=== PATIENT | male | born 1965 | race African-American/Black ===

== ENCOUNTER 2016-12-13 10:32 | Inpatient (IN) | payer OTHER ==
[2016-12-13 12:07] VITALS: BMI 24.1
--- NOTE | 2016-12-13 12:19 | HP ---
Admission ROS [facility] Chief Complaint: I gave a dirty tox and since I am on probation I need to be here for rehab services then go back to work. Allergies/Adverse Reactions: Allergies Allergy/AdvReac Type Severity Reaction Status Date / Time No Known Allergies Allergy Verified 12/13/16 12:09 History of Present Illness: pt is a 51yr old male with a history of crack/cocaine dependence seeking detox for treatment. Pt has a history of alcohol dependence but last drink was three days ago and currently has no withdrawals s/s.This is his first time in our facility for any services. Last time in any detox facility was many years ago at [facility]. Exam Limitations: No Limitations (I) - Ebola screening Have you traveled outside of the country in the last 21 days: No Have you had contact with anyone from an Ebola affected area: No Have you been sick,other than usual withdrawal symptoms: No Do you have a fever: No - Review of Systems Constitutional: No Symptoms Reported EENT: reports: No Symptoms Reported Respiratory: reports: No Symptoms reported Cardiac: reports: No Symptoms Reported GI: reports: No Symptoms Reported : reports: Frequency Musculoskeletal: reports: No Symptoms Reported Integumentary: reports: No Symptoms Reported Neuro: reports: No Symptoms reported Endocrine: reports: No Symptoms Reported Hematology: reports: No Symptoms Reported Psychiatric: reports: No Sypmtoms Reported, Judgement Intact, Orientated x3 Other Systems: Reviewed and Negative Patient History - Patient Medical History Hx Anemia: No Hx Asthma: No Hx Chronic Obstructive Pulmonary Disease (COPD): No Hx Cancer: No Hx Hypertension: Yes Hx Hypercholesterolemia: Yes Hx Pacemaker: No HX Cerebrovascular Accident: No Hx Seizures: No Hx Dementia: No Hx Diabetes: No Hx Gastrointestinal Disorders: No Hx Liver Disease: No Hx Genitourinary Disorders: No Hx Sexually Transmitted Disorders: No Hx Renal Disease (ESRD): No Hx Thyroid Disease: No Hx Human Immunodeficiency Virus (HIV): No (negative) Hx Hepatitis C: No (negative) Hx Depression: No Hx Suicide Attempt: No (denies) Hx Bipolar Disorder: No Hx Schizophrenia: No - Patient Surgical History Past Surgical History: No - PPD History Previous Implant?: Yes Documented Results: Positive w/o proof PPD to be Administered?: No - Reproductive History Patient is a Female of Child Bearing Age (11 -55 yrs old): No - Smoking Cessation Smoking history: Current every day smoker Have you smoked in the past 12 months: Yes Aproximately how many cigarettes per day: 10 Hx Chewing Tobacco Use: No Initiated information on smoking cessation: Yes 'Breaking Loose' booklet given: 12/13/16 - Substance & Tx. History Hx Alcohol Use: Yes Hx Substance Use: Yes Substance Use Type: Alcohol, Cocaine - Substances Abused Alcohol-beer Route: Oral Frequency: 1-2 times per week Amount used: 2-3 (12 oz.) Age of first use: 20 Date of Last Use: 12/10/16 Crack Route: Smoking Frequency: 3-6 times per week Amount used: $60 Age of first use: 24 Date of Last Use: 12/11/16 Family Disease History - Family Disease History Family History: Denies Admission Physical Exam [facility] - Vital Signs Vital Signs: Vital Signs - 24 hr 12/13/16 11:58 Temperature 97.5 F L Pulse Rate 83 Respiratory 18 Rate Blood Pressure 133/77 - Physical General Appearance: Yes: Appropriately Dressed, Mild Distress, Thin HEENTM: Yes: Normal Voice Respiratory: Yes: Lungs Clear, Normal Breath Sounds, No Respiratory Distress Neck: Yes: No masses,lesions,Nodules Breast: Yes: Within Normal Limits Cardiology: Yes: Regular Rhythm, Regular Rate, S1, S2 Abdominal: Yes: Normal Bowel Sounds, Non Tender, Soft Genitourinary: Yes: Within Normal Limits Back: Yes: Normal Inspection Musculoskeletal: Yes: full range of Motion Extremities: Yes: Normal Capillary Refill, Normal Inspection, Tremors Neurological: Yes: Fully Oriented, Alert, Normal Response Integumentary: Yes: Normal Color Lymphatic: Yes: Within Normal Limits - Diagnostic (1) Crack cocaine use Current Visit: Yes Status: Chronic (2) Nicotine dependence Current Visit: Yes Status: Chronic Qualifiers: Nicotine product type: cigarettes Substance use status: uncomplicated Qualified Code(s): F17.210 - Nicotine dependence, cigarettes, uncomplicated (3) Positive PPD Current Visit: Yes Status: Resolved Comment: received tx many years ago. (4) Alcohol abuse Current Visit: No Status: Chronic Cleared for Admission [facility] - Detox or Rehab [facility] Level of Care: Medically Managed Claeared for Rehab Admission: Yes [facility] Breath Alcohol Content Breath Alcohol Content: 0 Urine Drug Screen - Results Drug Screen Negative: No Urine Drug Screen Results: EUN-Cocaine
[2016-12-13] MEDS ORDERED: MAGNESIUM HYDROX 2400MG/30ML ORAL SUSPENSION 30 ML CUP PO PRN (12:37)
[2016-12-13] MEDS ORDERED: LOPERAMIDE HCL 2 MG CAPSULE PO PRN (12:37)
[2016-12-13] MEDS ORDERED: hydrOXYzine PAMOATE 50 MG CAPSULE (FP) PO PRN (12:37)
[2016-12-13] MEDS ORDERED: guaiFENesin/D-METHORPHAN HB 10 ML UNIT-DOSE CUPS PO PRN (12:37)
[2016-12-13] MEDS ORDERED: MAG HYDROX/AL HYDROX/SIMETH 30 ML UNIT-DOSE CUP PO PRN (12:37)
[2016-12-13] MEDS ORDERED: IBUPROFEN 400 MG TABLET (FP) PO PRN (12:37)
[2016-12-13] MEDS ORDERED: ACETAMINOPHEN 325 MG TABLET (FP) PO PRN (12:37)
[2016-12-13] MEDS ORDERED: MENTHOL/PHENOL 1 EACH UD MM PRN (12:37)
[2016-12-13] MEDS ORDERED: MAGNESIUM CITRATE 300 ML BOTTLE PO PRN (12:37)
[2016-12-13] MEDS ORDERED: P-EPHED 60MG/TRIPROLIDI 2.5MG TABLET PO PRN (12:37)
[2016-12-13 14:45] LABS: MCH 31.2 pg (25.7-33.7); MCHC 33.1 g/dl (32.0-35.9); MEAN CELL VOLUME 94.5 fl (80-96); MEAN PLT VOLUME 8.3 fl (7.5-11.1); PLATELET COUNT 232 K/MM3 (134-434); RDW 14.2 % (11.9-15.9); WHITE BLOOD COUNT 7.9 K/mm3 (4.0-10.0)
[2016-12-13 15:17] LABS: ALBUMIN 3.5 g/dl (3.4-5.0); ALK PHOS 73 U/L (45-117); ANION GAP 7 (8-16); BILIRUBIN,TOTAL 0.2 mg/dL (0.2-1.0); CALCIUM 8.8 mg/dL (8.5-10.1); CO2 29 mmol/L (21-32); CREATININE 1.2 mg/dL (0.7-1.3); GLUCOSE,RANDOM 112 mg/dL (74-106); SGOT/AST 20 U/L (15-37); SGPT/ALT 23 U/L (12-78); TOT PROT 6.7 g/dl (6.4-8.2)
[2016-12-13 15:38] LABS: HIV 1 & 2 AB NEGATIVE; HIV 1 AGp24 NEGATIVE
[2016-12-13] MEDS: THIAMINE HCL 100 MG TABLET (FP) PO SCH (21:25)
[2016-12-13 22:28] LABS: URINE APPEARANCE CLEAR; URINE BILIRUBIN NEGATIVE (NEGATIVE); URINE BLOOD NEGATIVE (NEGATIVE); URINE COLOR YELLOW; URINE GLUCOSE (UA) NEGATIVE (NEGATIVE); URINE KETONE NEGATIVE (NEGATIVE); URINE LEUK ESTERASE NEGATIVE (NEGATIVE); URINE NITRITE NEGATIVE (NEGATIVE); URINE PROTEIN NEGATIVE (NEGATIVE); URINE UROBILINOGEN NEGATIVE mg/dL (0.2-1.0)
[2016-12-14] MEDS: PRENATAL VITAMINS W/ FOLIC ACID TABLET (FP) PO SCH (09:35)
[2016-12-14] MEDS: NICOTINE 21 MG/24 HOURS TOPICAL PATCH TD SCH (09:35)
--- NOTE | 2016-12-14 09:41 | HP ---
Psychiatrist Admission - Data Date of interview: 12/14/16 Admission source: Many Identifying data: This is the first [facility] admission for this 51 years old single Black male, employed as a prter in a restaurant, living in a room Medical History: Significant for HTN, Hyperlipidemia, +PPD treated. Smokes 10 cigarettes daily Psychiatric History: Denies history of previous psychiatric treatment Physical/Sexual Abuse/Trauma History: Denies history of emotional, physical or sexual abuse as DV relationship Additional Comment: Reports history of 6 previous arrests including one felony conviction. Reports being on parole till 03/21/21 Vital Signs: Vital Signs - 24 hr 12/13/16 12/14/16 12/14/16 11:58 00:30 03:30 Temperature 97.5 F L Pulse Rate 83 Respiratory 18 20 18 Rate Blood Pressure 133/77 12/14/16 06:32 Temperature 98.6 F Pulse Rate 71 Respiratory 18 Rate Blood Pressure 139/81 Allergies/Adverse Reactions: Allergies Allergy/AdvReac Type Severity Reaction Status Date / Time No Known Allergies Allergy Verified 12/13/16 12:09 Date of last physical exam: 12/13/16 Concur with the findings of this exam: Yes - Substance Abuse/Tx History Hx Alcohol Use: Yes Hx Substance Use: Yes Substance Use Type: Alcohol (Started drinking alcohol at age 20, consumes 2-3x 12oz of beer 1-2 times weekly. Last drink on 12/10/16), Cocaine (Started smoking crack cocaine at age 24, consumes $60 worth 3-6 times weekly. Last smoked on 03/20) Hx Substance Use Treatment: Yes (previous inpt detox @ [facility] many years ago. Attends [facility]) - Admission Criteria Previous failed treatment: No Poor recovery environment: Yes Comorbidities: Yes Lacks judgement: Yes Mental Status Exam - Mental Status Exam Alert and Oriented to: Time, Place, Person Cognitive Function: Fair Patient Appearance: Disheveled Mood: Anxious, Hopeful Affect: Appropriate Patient Behavior: Cooperative Speech Pattern: Clear Voice Loudness: Normal Thought Process: Intact, Goal Oriented Thought Disorder: Not Present Hallucinations: Denies Suicidal Ideation: Denies Homicidal Ideation: Denies Insight/Judgement: Fair Sleep: Well Appetite: Good Muscle strength/Tone: Normal Gait/Station: Normal Psychiatric Findings - Problem List ([place] 1, 2,3) (1) Cocaine dependence Current Visit: Yes Status: Acute (2) Alcohol abuse Current Visit: No Status: Chronic (3) Nicotine dependence Current Visit: Yes Status: Chronic Qualifiers: Nicotine product type: cigarettes Substance use status: uncomplicated Qualified Code(s): F17.210 - Nicotine dependence, cigarettes, uncomplicated (4) Substance-induced anxiety disorder Current Visit: Yes Status: Acute (5) Positive PPD Current Visit: Yes Status: Resolved Comment: received tx many years ago. (6) HTN (hypertension) Current Visit: Yes Status: Acute (7) HLD (hyperlipidemia) Current Visit: Yes Status: Acute - Initial Treatment Plan Initial Treatment Plan: Monitor progress
--- NOTE | 2016-12-14 15:47 | EKG ---
Test Reason : Blood Pressure : / mmHG Vent. Rate : 066 BPM Atrial Rate : 066 BPM P-R Int : 160 ms QRS Dur : 100 ms QT Int : 404 ms P-R-T Axes : 072 075 037 degrees QTc Int : 423 ms NORMAL SINUS RHYTHM NONSPECIFIC T WAVE ABNORMALITY ABNORMAL ECG NO PREVIOUS ECGS AVAILABLE Confirmed by NIKKI WRIGHT MD ([id number]) on 12/14/2016 3:47:03 PM Referred By: Confirmed By:NIKKI WRIGHT MD
[2016-12-14] MEDS: THIAMINE HCL 100 MG TABLET (FP) PO SCH (21:39)
[2016-12-14] MEDS: diphenhydrAMINE HCL 50 MG CAPSULE PO PRN (21:39)
[2016-12-15] MEDS: PRENATAL VITAMINS W/ FOLIC ACID TABLET (FP) PO SCH (10:03)
[2016-12-15] MEDS: NICOTINE 21 MG/24 HOURS TOPICAL PATCH TD SCH (10:03)
[2016-12-15] MEDS: THIAMINE HCL 100 MG TABLET (FP) PO SCH (21:18)
[2016-12-15] MEDS: diphenhydrAMINE HCL 50 MG CAPSULE PO PRN (21:19)
[2016-12-16] MEDS: PRENATAL VITAMINS W/ FOLIC ACID TABLET (FP) PO SCH (09:41)
[2016-12-16] MEDS: NICOTINE 21 MG/24 HOURS TOPICAL PATCH TD SCH (09:41)
[2016-12-16] MEDS: THIAMINE HCL 100 MG TABLET (FP) PO SCH (21:30)
[2016-12-16] MEDS: diphenhydrAMINE HCL 50 MG CAPSULE PO PRN (21:30)
[2016-12-17] MEDS: NICOTINE 21 MG/24 HOURS TOPICAL PATCH TD SCH (10:03)
[2016-12-17] MEDS: PRENATAL VITAMINS W/ FOLIC ACID TABLET (FP) PO SCH (10:03)
[2016-12-17] MEDS: diphenhydrAMINE HCL 50 MG CAPSULE PO PRN (21:14)
[2016-12-17] MEDS: THIAMINE HCL 100 MG TABLET (FP) PO SCH (21:14)
[2016-12-18] MEDS: PRENATAL VITAMINS W/ FOLIC ACID TABLET (FP) PO SCH (09:41)
[2016-12-18] MEDS: NICOTINE 21 MG/24 HOURS TOPICAL PATCH TD SCH (09:41)
[2016-12-18] MEDS: diphenhydrAMINE HCL 50 MG CAPSULE PO PRN (21:15)
[2016-12-18] MEDS: THIAMINE HCL 100 MG TABLET (FP) PO SCH (21:15)
[2016-12-19] MEDS: NICOTINE 21 MG/24 HOURS TOPICAL PATCH TD SCH (09:44)
[2016-12-19] MEDS: PRENATAL VITAMINS W/ FOLIC ACID TABLET (FP) PO SCH (09:44)
[2016-12-19] MEDS: diphenhydrAMINE HCL 50 MG CAPSULE PO PRN (21:04)
[2016-12-19] MEDS: NICOTINE POLACRILEX 4 MG GUM BUC PRN (21:04)
[2016-12-19] MEDS: THIAMINE HCL 100 MG TABLET (FP) PO SCH (21:04)
[2016-12-20] MEDS: diphenhydrAMINE HCL 50 MG CAPSULE PO PRN ×2 (00:15→21:12)
[2016-12-20] MEDS: PRENATAL VITAMINS W/ FOLIC ACID TABLET (FP) PO SCH (09:36)
[2016-12-20] MEDS: NICOTINE 21 MG/24 HOURS TOPICAL PATCH TD SCH (09:36)
[2016-12-20] MEDS: THIAMINE HCL 100 MG TABLET (FP) PO SCH (21:12)
[2016-12-21] MEDS: PRENATAL VITAMINS W/ FOLIC ACID TABLET (FP) PO SCH (09:43)
[2016-12-21] MEDS: NICOTINE 21 MG/24 HOURS TOPICAL PATCH TD SCH (09:44)
[2016-12-21] MEDS: diphenhydrAMINE HCL 50 MG CAPSULE PO PRN (21:10)
[2016-12-21] MEDS: THIAMINE HCL 100 MG TABLET (FP) PO SCH (21:10)
[2016-12-22] MEDS: NICOTINE 21 MG/24 HOURS TOPICAL PATCH TD SCH (09:39)
[2016-12-22] MEDS: PRENATAL VITAMINS W/ FOLIC ACID TABLET (FP) PO SCH (09:39)
[2016-12-22] MEDS: diphenhydrAMINE HCL 50 MG CAPSULE PO PRN (21:11)
[2016-12-22] MEDS: THIAMINE HCL 100 MG TABLET (FP) PO SCH (21:11)
[2016-12-23] MEDS: PRENATAL VITAMINS W/ FOLIC ACID TABLET (FP) PO SCH (09:31)
[2016-12-23] MEDS: NICOTINE 21 MG/24 HOURS TOPICAL PATCH TD SCH (09:32)
[2016-12-23] MEDS: diphenhydrAMINE HCL 50 MG CAPSULE PO PRN (21:07)
[2016-12-23] MEDS: THIAMINE HCL 100 MG TABLET (FP) PO SCH (21:07)
[2016-12-24] MEDS: PRENATAL VITAMINS W/ FOLIC ACID TABLET (FP) PO SCH (10:09)
[2016-12-24] MEDS: NICOTINE 21 MG/24 HOURS TOPICAL PATCH TD SCH (10:09)
[2016-12-24] MEDS: THIAMINE HCL 100 MG TABLET (FP) PO SCH (21:21)
[2016-12-24] MEDS: diphenhydrAMINE HCL 50 MG CAPSULE PO PRN (21:21)
[2016-12-25] MEDS: PRENATAL VITAMINS W/ FOLIC ACID TABLET (FP) PO SCH (09:24)
[2016-12-25] MEDS: NICOTINE 21 MG/24 HOURS TOPICAL PATCH TD SCH (09:24)
[2016-12-25] MEDS: THIAMINE HCL 100 MG TABLET (FP) PO SCH (21:10)
[2016-12-25] MEDS: diphenhydrAMINE HCL 50 MG CAPSULE PO PRN (21:10)
[2016-12-26] MEDS: diphenhydrAMINE HCL 50 MG CAPSULE PO PRN ×2 (00:46→21:18)
[2016-12-26] MEDS: PRENATAL VITAMINS W/ FOLIC ACID TABLET (FP) PO SCH (09:25)
[2016-12-26] MEDS: NICOTINE 21 MG/24 HOURS TOPICAL PATCH TD SCH (09:25)
[2016-12-26] MEDS: THIAMINE HCL 100 MG TABLET (FP) PO SCH (21:18)
[2016-12-27] MEDS: NICOTINE 21 MG/24 HOURS TOPICAL PATCH TD SCH (09:34)
[2016-12-27] MEDS: PRENATAL VITAMINS W/ FOLIC ACID TABLET (FP) PO SCH (09:35)
[2016-12-27] MEDS: diphenhydrAMINE HCL 50 MG CAPSULE PO PRN (21:30)
[2016-12-27] MEDS: THIAMINE HCL 100 MG TABLET (FP) PO SCH (21:30)
[2016-12-28] MEDS: PRENATAL VITAMINS W/ FOLIC ACID TABLET (FP) PO SCH (09:38)
[2016-12-28] MEDS: NICOTINE 21 MG/24 HOURS TOPICAL PATCH TD SCH (09:38)
--- NOTE | 2016-12-28 16:46 | PN ---
SANGEETA Progress Note Note: evaluate patient or mas in left testes for 18 month became enlarge in size lately right inguinal hernia right testes normal mass left testes 3x3 cm with pain on palpation impression testicular mass left r/o testicular tumor right inguinal hernia treatment to er [facility] for evaluation and treatment,spoke with nurse Lu will inform Medical provider patient will be transported by [facility]
[2016-12-28] MEDS: THIAMINE HCL 100 MG TABLET (FP) PO SCH (21:30)
[2016-12-29] MEDS: NICOTINE 21 MG/24 HOURS TOPICAL PATCH TD SCH (09:54)
[2016-12-29] MEDS: PRENATAL VITAMINS W/ FOLIC ACID TABLET (FP) PO SCH (09:54)
--- NOTE | 2016-12-29 13:37 | PN ---
SANGEETA Progress Note Note: patient seen and evaluated in er [facility] 12/18/16,sonogram showed large left epidermal head cyst, small bilat hydrocoel,no evidence of torsion or acute pathology patient has no pain now he will go to the clinic at [facility] for evaluation and treatment by Urologist upon discharge
[2016-12-29] MEDS: THIAMINE HCL 100 MG TABLET (FP) PO SCH (21:34)
[2016-12-29] MEDS: diphenhydrAMINE HCL 50 MG CAPSULE PO PRN (22:51)
[2016-12-30] MEDS: NICOTINE 21 MG/24 HOURS TOPICAL PATCH TD SCH (09:36)
[2016-12-30] MEDS: PRENATAL VITAMINS W/ FOLIC ACID TABLET (FP) PO SCH (09:36)
[2016-12-30] MEDS: THIAMINE HCL 100 MG TABLET (FP) PO SCH (21:53)
[2016-12-30] MEDS: diphenhydrAMINE HCL 50 MG CAPSULE PO PRN (22:01)
[2016-12-31] MEDS: NICOTINE 21 MG/24 HOURS TOPICAL PATCH TD SCH (09:22)
[2016-12-31] MEDS: PRENATAL VITAMINS W/ FOLIC ACID TABLET (FP) PO SCH (09:22)
[2016-12-31] MEDS: THIAMINE HCL 100 MG TABLET (FP) PO SCH (21:31)
[2016-12-31] MEDS: diphenhydrAMINE HCL 50 MG CAPSULE PO PRN (21:31)
[2017-01-01] MEDS: PRENATAL VITAMINS W/ FOLIC ACID TABLET (FP) PO SCH (09:28)
[2017-01-01] MEDS: NICOTINE POLACRILEX 4 MG GUM BUC PRN ×2 (09:28→21:22)
[2017-01-01] MEDS: NICOTINE 21 MG/24 HOURS TOPICAL PATCH TD SCH (09:28)
[2017-01-01] MEDS: THIAMINE HCL 100 MG TABLET (FP) PO SCH (21:22)
[2017-01-01] MEDS: diphenhydrAMINE HCL 50 MG CAPSULE PO PRN (21:22)
[2017-01-02] MEDS: PRENATAL VITAMINS W/ FOLIC ACID TABLET (FP) PO SCH (09:55)
[2017-01-02] MEDS: NICOTINE 21 MG/24 HOURS TOPICAL PATCH TD SCH (09:55)
[2017-01-02] MEDS: THIAMINE HCL 100 MG TABLET (FP) PO SCH (21:20)
[2017-01-02] MEDS: NICOTINE POLACRILEX 4 MG GUM BUC PRN (21:20)
[2017-01-02] MEDS: diphenhydrAMINE HCL 50 MG CAPSULE PO PRN (21:20)
[2017-01-03] MEDS: PRENATAL VITAMINS W/ FOLIC ACID TABLET (FP) PO SCH (09:26)
[2017-01-03] MEDS: NICOTINE 21 MG/24 HOURS TOPICAL PATCH TD SCH (09:26)
[2017-01-03] MEDS: NICOTINE POLACRILEX 4 MG GUM BUC PRN (09:27)
[2017-01-03] MEDS: THIAMINE HCL 100 MG TABLET (FP) PO SCH (21:31)
[2017-01-03] MEDS: diphenhydrAMINE HCL 50 MG CAPSULE PO PRN (21:31)
[2017-01-04] MEDS: PRENATAL VITAMINS W/ FOLIC ACID TABLET (FP) PO SCH (09:37)
[2017-01-04] MEDS: NICOTINE POLACRILEX 4 MG GUM BUC PRN ×2 (09:38→21:03)
[2017-01-04] MEDS: NICOTINE 21 MG/24 HOURS TOPICAL PATCH TD SCH (09:38)
[2017-01-04] MEDS: diphenhydrAMINE HCL 50 MG CAPSULE PO PRN (21:02)
[2017-01-04] MEDS: THIAMINE HCL 100 MG TABLET (FP) PO SCH (21:02)
[2017-01-05] MEDS: PRENATAL VITAMINS W/ FOLIC ACID TABLET (FP) PO SCH (09:25)
[2017-01-05] MEDS: NICOTINE 21 MG/24 HOURS TOPICAL PATCH TD SCH (09:26)
[2017-01-05] MEDS: THIAMINE HCL 100 MG TABLET (FP) PO SCH (21:14)
[2017-01-05] MEDS: diphenhydrAMINE HCL 50 MG CAPSULE PO PRN (21:15)
[2017-01-06] MEDS: PRENATAL VITAMINS W/ FOLIC ACID TABLET (FP) PO SCH (10:02)
[2017-01-06] MEDS: NICOTINE 21 MG/24 HOURS TOPICAL PATCH TD SCH (10:02)
[2017-01-06] MEDS: THIAMINE HCL 100 MG TABLET (FP) PO SCH (21:13)
[2017-01-06] MEDS: diphenhydrAMINE HCL 50 MG CAPSULE PO PRN (21:13)
[2017-01-07] MEDS: NICOTINE 21 MG/24 HOURS TOPICAL PATCH TD SCH (09:35)
[2017-01-07] MEDS: PRENATAL VITAMINS W/ FOLIC ACID TABLET (FP) PO SCH (09:35)
[2017-01-07] MEDS: diphenhydrAMINE HCL 50 MG CAPSULE PO PRN (21:15)
[2017-01-07] MEDS: THIAMINE HCL 100 MG TABLET (FP) PO SCH (21:15)
[2017-01-08] MEDS: NICOTINE POLACRILEX 4 MG GUM BUC PRN (09:34)
[2017-01-08] MEDS: NICOTINE 21 MG/24 HOURS TOPICAL PATCH TD SCH (09:34)
[2017-01-08] MEDS: PRENATAL VITAMINS W/ FOLIC ACID TABLET (FP) PO SCH (09:34)
[2017-01-08] MEDS: THIAMINE HCL 100 MG TABLET (FP) PO SCH (21:39)
[2017-01-08] MEDS: diphenhydrAMINE HCL 50 MG CAPSULE PO PRN (21:39)
--- NOTE | 2017-01-09 07:49 | PN ---
Psychiatric Progress Note Vital Signs: Vital Signs Period Temp Pulse Resp BP Sys/Ge Pulse Ox Last 24 Hr 97.8 F 67 18-18 132/82 Date of Session: 01/09/17 Chief Complaint:: Discharge Note HPI: Patient addressing Cocaine Dependence and Alcohol Abuse comorbid with Nicotine Dependence and Substance-Induced Anxiety Disorder ROS: HTN, Hyperlipidemia,+PPD were medically managed Current Medications: Active Medications Generic Name Dose Route Start Last Admin Trade Name Freq PRN Reason Stop Dose Admin Acetaminophen 650 mg 12/13/16 12:37 Tylenol - PO Q4H PRN PAIN Al Hydroxide/Mg Hydroxide 30 ml 12/13/16 12:37 Mylanta Oral Suspension - PO Q6H PRN DYSPEPSIA Diphenhydramine HCl 50 mg 12/13/16 12:37 01/08/17 21:39 Benadryl - PO 50 mg HSMR1 PRN Administration INSOMNIA Eucalyptus/Menthol/Phenol/Sorbitol 1 each 12/13/16 12:37 Cepastat Lozenge - MM Q4H PRN SORE THROAT Guaifenesin 10 ml 12/13/16 12:37 Robitussin Dm - PO Q6H PRN COUGH Hydroxyzine Pamoate 50 mg 12/13/16 12:37 Vistaril - PO Q4H PRN AGITATION Ibuprofen 400 mg 12/13/16 12:37 Motrin - PO Q6H PRN SEVERE PAIN Loperamide HCl 4 mg 12/13/16 12:37 Imodium - PO Q6H PRN DIARRHEA Magnesium Citrate 300 ml 12/13/16 12:37 Citroma - PO Q48H PRN CONSTIPATION Magnesium Hydroxide 30 ml 12/13/16 12:37 Milk Of Magnesia - PO DAILY PRN CONSTIPATION Nicotine 21 mg 12/14/16 10:00 01/08/17 09:34 Nicoderm Patch - TD Not Given DAILY BLANCA Nicotine Polacrilex 4 mg 12/13/16 12:37 01/08/17 09:34 Nicorette Gum - BUC 4 mg Q2H PRN Administration NICOTINE REPLACEMENT RX Multivit/Folic Acid/Iron 1 tab 12/14/16 10:00 01/08/17 09:34 Vitamins (Sjr) - PO 1 tab DAILY BLANCA Administration Pseudoephedrine/Triprolidine 1 combo 12/13/16 12:37 Actifed - PO TID PRN NASAL CONGESTION Thiamine HCl 100 mg 12/13/16 22:00 01/08/17 21:39 Vitamin B1 - PO 100 mg HS BLANCA Administration Current Side Effect: No Lab tests ordered: Yes Lab tests reviewed: Yes Provider note:: Patient will complete this program on 01/10/17. He has met his treatment goals and will continue to address his issues in outpatient treatment at [facility]. 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 He is stable for discharge on 01/10/17 Total face to face time:: 35 Mental Status Exam - Mental Status Exam Alert and Oriented to: Time, Place, Person Cognitive Function: Fair Patient Appearance: Well Groomed Mood: Hopeful, Euthymic Affect: Appropriate Patient Behavior: Cooperative Speech Pattern: Clear Voice Loudness: Normal Thought Process: Intact, Goal Oriented Thought Disorder: Not Present Hallucinations: Denies Suicidal Ideation: Denies Homicidal Ideation: Denies Insight/Judgement: Fair Sleep: Well Appetite: Good Muscle strength/Tone: Normal Gait/Station: Normal Psychiatric Treatment Plan - Problem List (1) Cocaine dependence Current Visit: Yes (2) Alcohol abuse Current Visit: No (3) Nicotine dependence Current Visit: Yes Qualifiers: Nicotine product type: cigarettes Substance use status: uncomplicated Qualified Code(s): F17.210 - Nicotine dependence, cigarettes, uncomplicated (4) Substance-induced anxiety disorder Current Visit: Yes (5) Positive PPD Current Visit: Yes Comment: received tx many years ago. (6) HTN (hypertension) Current Visit: Yes (7) HLD (hyperlipidemia) Current Visit: Yes Initial treatment plan: Patient will be discharged tomorrow and refered to [facility] for outpatient treatment
[2017-01-09] MEDS: NICOTINE 21 MG/24 HOURS TOPICAL PATCH TD SCH (09:37)
[2017-01-09] MEDS: PRENATAL VITAMINS W/ FOLIC ACID TABLET (FP) PO SCH (09:37)
[2017-01-09] MEDS: NICOTINE POLACRILEX 4 MG GUM BUC PRN (09:38)
[2017-01-09] MEDS: diphenhydrAMINE HCL 50 MG CAPSULE PO PRN (21:34)
[2017-01-09] MEDS: THIAMINE HCL 100 MG TABLET (FP) PO SCH (21:34)
[2017-01-10 06:52] VITALS: BP 160/98; PULSE 77; TEMP 98.5
[2017-01-10] MEDS: PRENATAL VITAMINS W/ FOLIC ACID TABLET (FP) PO SCH (09:34)
[2017-01-10] MEDS: NICOTINE 21 MG/24 HOURS TOPICAL PATCH TD SCH (09:34)
[2017-01-10] MEDS: NICOTINE POLACRILEX 4 MG GUM BUC PRN (09:35)
== END 2017-01-10 10:07 | disposition home or self-care (01) | DRG 772 ==
LOC: YASAS 10:32 → Y3W 12:45
PROVIDERS: ADMIT Psychiatry & Neurology Psychiatry; ATTEND Psychiatry & Neurology Psychiatry
PROC: HZ42ZZZ Group Counseling for Substance Abuse Treatment, Cognitive-Behavioral (ICD-10-PCS; principal; 2016-12-13)
DX: F14.20 Cocaine dependence, uncomplicated (principal); F10.10 Alcohol abuse, uncomplicated; F17.210 Nicotine dependence, cigarettes, uncomplicated; F19.280 Other psychoactive substance dependence with psychoactive substance-induced anxiety disorder; I10 Essential (primary) hypertension; E78.5 Hyperlipidemia, unspecified; R76.11 Nonspecific reaction to tuberculin skin test without active tuberculosis; N44.2 Benign cyst of testis; N43.3 Hydrocele, unspecified; K40.90 Unilateral inguinal hernia, without obstruction or gangrene, not specified as recurrent
CPT/HCPCS: 36415; 71020-TC; 80053; 81003; 85027; 86593; 87389; 93005; 93010

== ENCOUNTER 2016-12-28 18:45 | Emergency (ER) | payer OTHER ==
[2016-12-28 19:04] VITALS: BP 143/82; PULSE 68; TEMP 98.5; BMI 25.0
--- NOTE | 2016-12-28 19:46 | PDOC ---
History of Present Illness - General Chief Complaint: Pain, Acute Stated Complaint: TESTICULAR PAIN Time Seen by Provider: 12/28/16 19:26 History Source: Patient - History of Present Illness Initial Comments: 12/28/16 20:00 51-year-old male sent here from [facility] currently admitted for detox for alcohol and cocaine here for evaluation of swollen testicles. As per patient, he has been having and asked to left testicles for greater than 1 year. Denies penile discharge, urinary symptomsand scrotal pain to the area at this time. Past History - Past Medical History Allergies/Adverse Reactions: Allergies Allergy/AdvReac Type Severity Reaction Status Date / Time No Known Allergies Allergy Verified 12/28/16 19:04 Home Medications: Ambulatory Orders Unobtainable [Unobtainable] 12/13/16 Anemia: No Asthma: No Cancer: No Cardiac Disorders: No CVA: No COPD: No Dementia: No Diabetes: No GI Disorders: No Disorders: No HTN: Yes Hypercholesterolemia: Yes Kidney Stones: No Liver Disease: No Suicide Attempt (Hx): No (denies) Seizures: No Thyroid Disease: No Other medical history: ADDICTION. - Surgical History Abdominal Surgery: No Appendectomy: No Cardiac Surgery: No Cholecystectomy: No Lung Surgery: No Neurologic Surgery: No Orthopedic Surgery: No - Reproductive History Testicular Surgery: No - Psycho/Social/Smoking Cessation Hx Anxiety: No Suicidal Ideation: No Smoking History: Never smoked Have you smoked in the past 12 months: Yes Number of Cigarettes Smoked Daily: 10 'Breaking Loose' booklet given: 12/13/16 Hx Alcohol Use: Yes Drug/Substance Use Hx: Yes Substance Use Type: Alcohol, Cocaine Hx Substance Use Treatment: Yes (previous inpt detox @ [facility] many years ago. Attends [facility]) Abd/GI Specific PMHX - Complaint Specific PMHX Hepatitis: No Pancreatitis: No *Physical Exam - Vital Signs Last Vital Signs Temp Pulse Resp BP Pulse Ox 98.5 F 68 18 143/82 100 12/28/16 19:02 12/28/16 19:02 12/28/16 19:02 12/28/16 19:02 12/28/16 19:02 Progress Note - Progress Note Progress Note: A: scrotal swelling P: *DC/Admit/Observation/Transfer Diagnosis at time of Disposition: Cyst of epididymis - Discharge Dispostion Disposition: I.P. ALCOHOL/SUBS ABUSE REHAB Admit: No - Patient Instructions Printed Discharge Instructions: Testicular Self-Exam (LIN) Additional Instructions: follow up with urology for evaluation of your cyst.
--- NOTE | 2016-12-28 19:51 | PDOC ---
*Physical Exam - Vital Signs Last Vital Signs Temp Pulse Resp BP Pulse Ox 98.5 F 68 18 143/82 100 12/28/16 19:02 12/28/16 19:02 12/28/16 19:02 12/28/16 19:02 12/28/16 19:02 Medical Decision Making - Medical Decision Making 12/28/16 19:51 agree with care from [facility]
[2016-12-28 20:37] LABS: URINE APPEARANCE CLEAR; URINE BILIRUBIN NEGATIVE (NEGATIVE); URINE BLOOD NEGATIVE (NEGATIVE); URINE COLOR LTYELLOW; URINE GLUCOSE (UA) NEGATIVE (NEGATIVE); URINE KETONE NEGATIVE (NEGATIVE); URINE LEUK ESTERASE NEGATIVE (NEGATIVE); URINE NITRITE NEGATIVE (NEGATIVE); URINE PROTEIN NEGATIVE (NEGATIVE); URINE UROBILINOGEN NEGATIVE mg/dL (0.2-1.0)
== END 2016-12-29 | disposition other institution (70) ==
LOC: JER 18:45
DX: N50.3 Cyst of epididymis (principal); F10.20 Alcohol dependence, uncomplicated; F14.20 Cocaine dependence, uncomplicated
CPT/HCPCS: 36415; 76870-TC; 81003; 87086; 87491; 87591; 99282-25